=== PATIENT | male | born 1970 | race Caucasian/White ===

== ENCOUNTER 2018-10-23 15:25 | Emergency (ER) | payer OTHER, MEDICAID ==
[~2018-10-23] VITALS: Ht 167.6 cm; Wt 65.8 kg
[2018-10-23 15:58] VITALS: BP 123/84
--- NOTE | 2018-10-23 16:16 | NUR ---
WAIT IN [email or web address]
--- NOTE | 2018-10-23 16:44 | NUR ---
PT AMBULATED TO ER [facility]
--- NOTE | 2018-10-23 16:50 | NUR ---
C/O NAUSEA X 3 DAYS. PT STATED " I GOT A PHONE CALL FROM A HOSPITAL IN [place] , THEY TOLD ME THAT I HAVE SYPHILIS ACTIVE". MED HX: SCHIZOPHRENIA, BIPOLAR MED: METFORMIN, LITHIUM, ABILIFY, SEROQUEL
[2018-10-23] MEDS ORDERED: PENICILLIN G BENZATHINE L-A 1.2 MU/2 ML SYR IM ONE (17:00)
--- NOTE | 2018-10-23 17:45 | NUR ---
MEDICATION ADMINISTERED ORDERED. NO ADVERSE SIDE EFFECTS NOTED.
[2018-10-23 17:52] VITALS: BP 123/84
--- NOTE | 2018-10-23 17:52 | NUR ---
Patient discharged with v/s stable. Written and verbal after care instructions given and explained to parent/guardian. Parent/Guardian verbalized understanding. Ambulatorysteady gait. All questions addressed prior to discharge. Advised to follow up with PMD.
== END 2018-10-23 17:52 | disposition home or self-care (01) ==
LOC: MED 15:25
DX: A64 Unspecified sexually transmitted disease (principal); F25.9 Schizoaffective disorder, unspecified
CPT/HCPCS: 96372; 99283; J0561